=== PATIENT | female | born 1935 | race Native Hawaiian/Other Pacific Islander ===

== ENCOUNTER 2018-01-17 02:58 | Outpatient (CLI) | payer OTHER ==
[~2018-01-17 02:58] MED LIST: ALLEGRA ALRG180 M1 PO; ASA LOW STR81 MG PO; BENICAR20 MG PO; CARDIZEM90 MG PO; CEFTIN500 MG OR; CIPRO500 MG PO; FLUT0.05 NAS; FORTAMET1000 MG OR
== END 2018-01-17 03:17 | disposition short-term general hospital (02) ==
LOC: AMB 02:58
DX: R53.1 Weakness (principal)
CPT/HCPCS: A0425; A0429